=== PATIENT | male | born 1995 | race Caucasian/White ===

== ENCOUNTER 2018-07-29 21:53 | Emergency (ER) | payer SELFPAY ==
[~2018-07-29] VITALS: Ht 182.9 cm; Wt 75.0 kg
[2018-07-29 22:01] VITALS: Ht 182.9 cm; Wt 75.0 kg
[2018-07-29] MEDS ORDERED: ALBUTEROL SULF8.5 GM INH (22:57)
[2018-07-29] MEDS ORDERED: AUGMENTIN 875-11 TAB PO (22:57)
[2018-07-29] MEDS ORDERED: STERAPRED DS 1010 MG PO (22:57)
[2018-07-29 23:08] VITALS: BP 115/74
== END 2018-07-29 23:09 | disposition home or self-care (01) ==
LOC: D.ER 21:53
DX: J45.901 Unspecified asthma with (acute) exacerbation (principal); J40 Bronchitis, not specified as acute or chronic